=== PATIENT | female | born 1940 | race Caucasian/White ===

== ENCOUNTER 2017-08-14 14:59 | Emergency (ER) | payer MEDICARE ==
[~2017-08-14] VITALS: Ht 170.2 cm; Wt 72.6 kg
[~2017-08-14 14:59] MED LIST: ALBU90OI61 INH; ASPI81EC PO; ATEN25 PO; CALCAVITDA PO; CARI350 PO; CITA20 PO; CONEST.625 PO; CYAN1000 PO; DEXILANT PO; DILT60ER PO; DULO60 PO; FURO20 PO; HYDACE5 PO; IBUP800 PO; LANS30EC PO; LISHYD2012 PO; LISI5 PO; LORA.5 PO; LOVA40 PO; OMEG1CAP30 PO; OMEGA 3 PO; PARO20 PO; PREG50 PO; PREG75 PO; PRIM50 PO; RXHYDACE PO; TOCO400 PO; TRAM50 PO; [UNRECOGNIZED DRUG - OTHER] PO
[2017-08-14] MEDS ORDERED: GABA100 PO (16:46)
[2017-08-14] MEDS ORDERED: LISI20 PO (16:47)
[2017-08-14] MEDS ORDERED: MELO7.5 PO (16:48)
[2017-08-14] MEDS ORDERED: FURO20 PO (16:48)
[2017-08-14] MEDS ORDERED: POTA10T PO (16:48)
[2017-08-14] MEDS ORDERED: Carbidopa-Levo1 EAC1 PO (16:49)
[2017-08-14] MEDS ORDERED: Carbidopa-Levo1 EAC4 PO (16:50)
[2017-08-14] MEDS ORDERED: HYDR1TAB94 PO (17:56)
== END 2017-08-14 18:20 | disposition home or self-care (01) ==
LOC: ER 14:59
DX: T85.09XA Other mechanical complication of ventricular intracranial (communicating) shunt, initial encounter (principal); R51 Headache; Z79.899 Other long term (current) drug therapy; Z79.891 Long term (current) use of opiate analgesic
CPT/HCPCS: 36415; 70450; 75809; 96374; 96375; 99284; J1170; J2405

== ENCOUNTER 2017-10-02 06:30 | Emergency (ER) | payer MEDICARE ==
[~2017-10-02] VITALS: Ht 170.2 cm; Wt 71.2 kg
[~2017-10-02 06:30] MED LIST changes: +Carbidopa-Levo1 EAC1 PO; +Carbidopa-Levo1 EAC4; +GABA300 PO; +HYDR1TAB94 PO; +LISI20 PO; +MELO7.5 PO; +POTA10T PO
== END 2017-10-02 08:06 | disposition home or self-care (01) ==
LOC: ER 06:30
DX: S00.03XA Contusion of scalp, initial encounter (principal); S50.01XA Contusion of right elbow, initial encounter; S90.31XA Contusion of right foot, initial encounter; S70.01XA Contusion of right hip, initial encounter; I10 Essential (primary) hypertension; E78.00 Pure hypercholesterolemia, unspecified; F32.9 Major depressive disorder, single episode, unspecified; E11.9 Type 2 diabetes mellitus without complications; I25.2 Old myocardial infarction; Z86.73 Personal history of transient ischemic attack (TIA), and cerebral infarction without residual deficits; Z88.5 Allergy status to narcotic agent; Z88.8 Allergy status to other drugs, medicaments and biological substances; Z79.899 Other long term (current) drug therapy; W18.09XA Striking against other object with subsequent fall, initial encounter
CPT/HCPCS: 70450; 73502; 73630; 99284

== ENCOUNTER 2017-10-03 21:19 | Inpatient (IN) | payer MEDICARE ==
[~2017-10-03] VITALS: Ht 170.2 cm; Wt 71.7 kg
[~2017-10-03 21:19] MED LIST changes: -Carbidopa-Levo1 EAC4; +Carbidopa-Levo1 EAC4 PO; +GABA100 PO; -GABA300 PO
[2017-10-03 23:07] LABS: BASOPHILS ABSOLUTE AUTO 0.03 K/mm3 (0.00-0.23); BASOPHILS PERCENT AUTO 0 % (0-2); EOSINOPHILS PERCENT AUTO 0 % (0-6); Hematocrit 36.9 % (33.0-51.0); Hemoglobin 12.2 g/dL (11.5-16.0); IMMATURE GRAN ABSOLUTE AUTO 0.07 K/mm3 (0.00-0.10); IMMATURE GRAN PERCENT AUTO 1 % (0-1); LYMPHOCYTES ABSOLUTE AUTO 1.16 K/mm3 (0.84-5.20); LYMPHOCYTES PERCENT AUTO 9 % (21-46); MONOCYTES ABSOLUTE AUTO 1.17 K/mm3 (0.16-1.47); MONOCYTES PERCENT AUTO 9 % (4-13); Mean Corpuscular HGB 28.2 pg (26.0-34.0); Mean Corpuscular HGB Conc 33.1 g/dL (31.5-36.5); Mean Corpuscular Volume 85 fL (80-100); NEUTROPHILS PERCENT AUTO 81 % (41-73); Platelet Count 153 K/mm3 (150-400); RDW Coefficient Variation 13.1 % (11.7-14.2); RDW Standard Deviation 40.4 fL (35.1-46.3); Red Blood Cell Count 4.33 M/mm3 (3.80-5.20); White Blood Cell Count 12.73 K/mm3 (4.00-11.30)
[2017-10-03 23:22] LABS: Alanine Aminotransfer (ALT/SGP 11 U/L (12-78); Albumin, Blood 3.1 g/dL (3.4-5.0); Albumin/Globulin Ratio 0.7 (0.8-1.8); Alk Phos 82 U/L (50-136); Anion Gap 8 mmol/L (6-16); Aspartate Aminotrans (AST/SGOT 35 U/L (12-37); Bilirubin, Total 0.7 mg/dL (0.1-1.0); Blood Urea Nitrogen 19 mg/dL (8-24); CO2, Blood 25 mmol/L (21-32); Calcium, Blood 8.9 mg/dL (8.5-10.1); Chloride, Blood 100 mmol/L (98-108); Globulin, Blood 4.2 g/dL (2.2-4.0); Glomerular Filtration Rate >60 (60-); Glucose, Blood 95 mg/dL (70-99); Potassium, Blood 3.6 mmol/L (3.5-5.5); Sodium, Blood 133 mmol/L (136-145); Total Protein, Blood 7.3 g/dL (6.4-8.2)
[2017-10-03 23:47] LABS: Source, Urine Catheter
[2017-10-03 23:53] LABS: Bilirubin, Urine Neg (Neg); Blood, Urine 4+ (Neg); Glucose Qualitative, Urine Neg (Neg); Ketones, Urine 3+ (Neg); Leukocyte Esterase, Urine 3+ (Neg); Nitrite, Urine Pos (Neg); Protein, Urine 3+ (Neg); Urobilinogen, Urine NORM (Normal)
[2017-10-04 00:02] LABS: Appearance, Urine Hazy (Clear); Color, Urine Yellow (P-Yellow)
[2017-10-04 00:06] LABS: Bacteria Many /hpf; Red Blood Cells, Urine 0-2 /hpf (0-2); Squamous Epithelial Cells Few /hpf (Few); White Blood Cells, Urine TNTC /hpf (0-5)
[2017-10-04 05:17] LABS: BASOPHILS ABSOLUTE AUTO 0.04 K/mm3 (0.00-0.23); BASOPHILS PERCENT AUTO 0 % (0-2); EOSINOPHILS ABSOLUTE AUTO 0.02 K/mm3 (0.00-0.68); EOSINOPHILS PERCENT AUTO 0 % (0-6); Hematocrit 37.6 % (33.0-51.0); Hemoglobin 12.5 g/dL (11.5-16.0); IMMATURE GRAN ABSOLUTE AUTO 0.06 K/mm3 (0.00-0.10); IMMATURE GRAN PERCENT AUTO 1 % (0-1); LYMPHOCYTES PERCENT AUTO 12 % (21-46); MONOCYTES ABSOLUTE AUTO 1.08 K/mm3 (0.16-1.47); MONOCYTES PERCENT AUTO 9 % (4-13); Mean Corpuscular HGB 28.2 pg (26.0-34.0); Mean Corpuscular HGB Conc 33.2 g/dL (31.5-36.5); Mean Corpuscular Volume 85 fL (80-100); Mean Platelet Volume 11.1 fL (9.1-12.4); NEUTROPHILS ABSOLUTE AUTO 9.64 K/mm3 (1.96-9.15); NEUTROPHILS PERCENT AUTO 78 % (41-73); Platelet Count 147 K/mm3 (150-400); RDW Coefficient Variation 13.1 % (11.7-14.2); RDW Standard Deviation 40.7 fL (35.1-46.3); Red Blood Cell Count 4.43 M/mm3 (3.80-5.20); White Blood Cell Count 12.34 K/mm3 (4.00-11.30)
[2017-10-04 05:41] LABS: Anion Gap 9 mmol/L (6-16); Blood Urea Nitrogen 20 mg/dL (8-24); Bun/Creatinine Ratio 22.2 (12.0-20.0); CO2, Blood 23 mmol/L (21-32); Calcium, Blood 8.8 mg/dL (8.5-10.1); Chloride, Blood 102 mmol/L (98-108); Glomerular Filtration Rate >60 (60-); Glucose, Blood 90 mg/dL (70-99); Potassium, Blood 3.8 mmol/L (3.5-5.5); Sodium, Blood 134 mmol/L (136-145)
[2017-10-05 05:12] LABS: BASOPHILS ABSOLUTE AUTO 0.03 K/mm3 (0.00-0.23); BASOPHILS PERCENT AUTO 0 % (0-2); EOSINOPHILS ABSOLUTE AUTO 0.03 K/mm3 (0.00-0.68); EOSINOPHILS PERCENT AUTO 0 % (0-6); Hematocrit 36.1 % (33.0-51.0); Hemoglobin 11.9 g/dL (11.5-16.0); IMMATURE GRAN ABSOLUTE AUTO 0.08 K/mm3 (0.00-0.10); IMMATURE GRAN PERCENT AUTO 1 % (0-1); LYMPHOCYTES ABSOLUTE AUTO 1.36 K/mm3 (0.84-5.20); LYMPHOCYTES PERCENT AUTO 11 % (21-46); MONOCYTES ABSOLUTE AUTO 0.92 K/mm3 (0.16-1.47); MONOCYTES PERCENT AUTO 7 % (4-13); Mean Corpuscular HGB 28.1 pg (26.0-34.0); Mean Corpuscular Volume 85 fL (80-100); Mean Platelet Volume 11.3 fL (9.1-12.4); NEUTROPHILS ABSOLUTE AUTO 10.44 K/mm3 (1.96-9.15); NEUTROPHILS PERCENT AUTO 81 % (41-73); Platelet Count 160 K/mm3 (150-400); RDW Coefficient Variation 13.2 % (11.7-14.2); RDW Standard Deviation 41.1 fL (35.1-46.3); Red Blood Cell Count 4.23 M/mm3 (3.80-5.20); White Blood Cell Count 12.86 K/mm3 (4.00-11.30)
[2017-10-05 05:43] LABS: Anion Gap 8 mmol/L (6-16); Blood Urea Nitrogen 17 mg/dL (8-24); CO2, Blood 24 mmol/L (21-32); Calcium, Blood 8.6 mg/dL (8.5-10.1); Chloride, Blood 100 mmol/L (98-108); Creatinine, Blood 0.81 mg/dL (0.40-1.00); Glomerular Filtration Rate >60 (60-); Glucose, Blood 98 mg/dL (70-99); Potassium, Blood 3.6 mmol/L (3.5-5.5); Sodium, Blood 132 mmol/L (136-145)
[2017-10-06 04:46] LABS: BASOPHILS ABSOLUTE AUTO 0.03 K/mm3 (0.00-0.23); BASOPHILS PERCENT AUTO 0 % (0-2); EOSINOPHILS ABSOLUTE AUTO 0.09 K/mm3 (0.00-0.68); EOSINOPHILS PERCENT AUTO 1 % (0-6); Hematocrit 37.2 % (33.0-51.0); Hemoglobin 12.2 g/dL (11.5-16.0); IMMATURE GRAN ABSOLUTE AUTO 0.04 K/mm3 (0.00-0.10); IMMATURE GRAN PERCENT AUTO 0 % (0-1); LYMPHOCYTES ABSOLUTE AUTO 0.98 K/mm3 (0.84-5.20); LYMPHOCYTES PERCENT AUTO 11 % (21-46); MONOCYTES ABSOLUTE AUTO 0.84 K/mm3 (0.16-1.47); MONOCYTES PERCENT AUTO 9 % (4-13); Mean Corpuscular HGB 27.6 pg (26.0-34.0); Mean Corpuscular HGB Conc 32.8 g/dL (31.5-36.5); Mean Corpuscular Volume 84 fL (80-100); Mean Platelet Volume 10.5 fL (9.1-12.4); NEUTROPHILS PERCENT AUTO 79 % (41-73); Platelet Count 173 K/mm3 (150-400); RDW Coefficient Variation 12.9 % (11.7-14.2); RDW Standard Deviation 39.8 fL (35.1-46.3); Red Blood Cell Count 4.42 M/mm3 (3.80-5.20); White Blood Cell Count 9.28 K/mm3 (4.00-11.30)
[2017-10-06 05:04] LABS: Anion Gap 7 mmol/L (6-16); Blood Urea Nitrogen 14 mg/dL (8-24); Bun/Creatinine Ratio 19.3 (12.0-20.0); CO2, Blood 27 mmol/L (21-32); Calcium, Blood 8.9 mg/dL (8.5-10.1); Chloride, Blood 98 mmol/L (98-108); Creatinine, Blood 0.73 mg/dL (0.40-1.00); Glomerular Filtration Rate >60 (60-); Glucose, Blood 98 mg/dL (70-99); Potassium, Blood 3.9 mmol/L (3.5-5.5); Sodium, Blood 132 mmol/L (136-145)
[2017-10-07] MEDS ORDERED: ACETAMINOPHEN500 MG PO (15:35)
[2017-10-07] MEDS ORDERED: DOCU100 PO (15:36)
[2017-10-07] MEDS ORDERED: ALUM-MAG HYDRO360 ML PO (15:36)
[2017-10-07] MEDS ORDERED: HYDR10 PO (15:37)
[2017-10-07] MEDS ORDERED: ONDA4ODT SL (15:40)
[2017-10-07] MEDS ORDERED: LEVO750 PO (15:40)
[2017-10-07] MEDS ORDERED: Miralax17 GM PO (15:41)
== END 2017-10-07 18:14 | disposition home or self-care (01) | DRG 689 ==
LOC: ER 21:19 → MEDS 21:20
PROVIDERS: Emergency Medicine; Family Medicine; Internal Medicine
DX: N39.0 Urinary tract infection, site not specified (principal); G93.41 Metabolic encephalopathy; G91.2 (Idiopathic) normal pressure hydrocephalus; I10 Essential (primary) hypertension; G20 Parkinson's disease; B96.20 Unspecified Escherichia coli [E. coli] as the cause of diseases classified elsewhere; I25.2 Old myocardial infarction; M79.7 Fibromyalgia; F32.9 Major depressive disorder, single episode, unspecified; K59.00 Constipation, unspecified; R10.9 Unspecified abdominal pain
CPT/HCPCS: 36415; 74018; 76700; 80048; 80053; 81001; 83036; 83605; 85025; 87077; 87086; 87186; 87493; 96374; 97162; 97166; 97530; 97535; 99285; G8978; G8979; G8987; G8988; J0360; J0696; J1650; J1956; J2405; J3010; J3480; P9612

== ENCOUNTER 2017-12-05 17:28 | Emergency (ER) | payer MEDICARE ==
[~2017-12-05] VITALS: Ht 170.2 cm; Wt 68.0 kg
[~2017-12-05 17:28] MED LIST changes: +ACETAMINOPHEN500 MG PO; +ALUM-MAG HYDRO360 ML PO; +DOCU100 PO; +HYDR10 PO; +LEVO750 PO; +Miralax17 GM PO; +ONDA4ODT SL
== END 2017-12-05 20:20 | disposition left against medical advice (07) ==
LOC: ER 17:28
DX: Z53.21 Procedure and treatment not carried out due to patient leaving prior to being seen by health care provider (principal); N39.0 Urinary tract infection, site not specified
CPT/HCPCS: 99281

== ENCOUNTER → 2018-02-05 | Outpatient (CLI) | payer MEDICARE | END | disposition home or self-care (01) | LOC: LAB EV 15:30 → LAB SHORT 15:30 | DX: R30.0 Dysuria (principal) | CPT/HCPCS: 87077; 87086; 87186 ==

== ENCOUNTER → 2018-02-21 | Outpatient (CLI) | payer MEDICARE | END | disposition home or self-care (01) | LOC: LAB SHORT 17:08 → LAB EV 17:08 | DX: R30.0 Dysuria (principal) | CPT/HCPCS: 87077; 87086; 87186 ==

== ENCOUNTER → 2018-06-06 | Outpatient (CLI) | payer MEDICARE ==
[~2018-06-06] MED LIST changes: +AMLO5 PO; +CEFD300 PO; +METCAR500 PO; +MIRALAX17 GM PO; +Norco 5-325 Ta1 EACH PO; +Omeprazole20 M1 PO; +Robaxin500 MG PO; +Tizanidine HCl2 MG PO; +Tylenol325 MG PO
== END | disposition home or self-care (01) ==
LOC: LAB SHORT 16:14 → LAB EV 16:14
DX: N39.0 Urinary tract infection, site not specified (principal)
CPT/HCPCS: 87086

== ENCOUNTER 2018-07-02 13:41 | Inpatient (IN) | payer MEDICARE ==
[~2018-07-02] VITALS: Ht 167.6 cm; Wt 63.5 kg
[~2018-07-02 13:41] MED LIST changes: -AMLO5 PO; -CEFD300 PO; -METCAR500 PO; -MIRALAX17 GM PO; -Norco 5-325 Ta1 EACH PO; -Omeprazole20 M1 PO; -Robaxin500 MG PO; -Tizanidine HCl2 MG PO; -Tylenol325 MG PO
[2018-07-02 14:12] LABS: BASOPHILS ABSOLUTE AUTO 0.06 K/mm3 (0.00-0.23); BASOPHILS PERCENT AUTO 1 % (0-2); EOSINOPHILS PERCENT AUTO 3 % (0-6); Hematocrit 42.4 % (33.0-51.0); Hemoglobin 13.7 g/dL (11.5-16.0); IMMATURE GRAN ABSOLUTE AUTO 0.03 K/mm3 (0.00-0.10); IMMATURE GRAN PERCENT AUTO 0 % (0-1); LYMPHOCYTES ABSOLUTE AUTO 1.33 K/mm3 (0.84-5.20); LYMPHOCYTES PERCENT AUTO 14 % (21-46); MONOCYTES ABSOLUTE AUTO 0.55 K/mm3 (0.16-1.47); MONOCYTES PERCENT AUTO 6 % (4-13); Mean Corpuscular HGB 29.2 pg (26.0-34.0); Mean Corpuscular HGB Conc 32.3 g/dL (31.5-36.5); Mean Corpuscular Volume 90 fL (80-100); Mean Platelet Volume 11.1 fL (9.1-12.4); NEUTROPHILS ABSOLUTE AUTO 7.46 K/mm3 (1.96-9.15); NEUTROPHILS PERCENT AUTO 77 % (41-73); Platelet Count 209 K/mm3 (150-400); RDW Standard Deviation 42.3 fL (35.1-46.3); Red Blood Cell Count 4.69 M/mm3 (3.80-5.20); White Blood Cell Count 9.73 K/mm3 (4.00-11.30)
[2018-07-02 14:33] LABS: Albumin, Blood 3.6 g/dL (3.4-5.0); Albumin/Globulin Ratio 0.9 (0.8-1.8); Bilirubin, Total 0.5 mg/dL (0.1-1.0); Bun/Creatinine Ratio 20.2 (12.0-20.0); Calcium, Blood 8.8 mg/dL (8.5-10.1); Creatinine, Blood 1.14 mg/dL (0.40-1.00); Globulin, Blood 3.8 g/dL (2.2-4.0); Potassium, Blood 3.7 mmol/L (3.5-5.5); Total Protein, Blood 7.4 g/dL (6.4-8.2)
[2018-07-02 14:43] LABS: Source, Urine Clean Catch
[2018-07-02 14:47] LABS: Bilirubin, Urine Neg (Neg); Blood, Urine 2+ (Neg); Glucose Qualitative, Urine Neg (Neg); Ketones, Urine 1+ (Neg); Leukocyte Esterase, Urine 3+ (Neg); Nitrite, Urine Pos (Neg); Protein, Urine 3+ (Neg); Specific Gravity, Urine 1.025 (1.003-1.022); Urobilinogen, Urine NORM (Normal)
[2018-07-02 15:00] LABS: Appearance, Urine Cloudy (Clear); Color, Urine Yellow (P-Yellow)
[2018-07-02 15:01] LABS: White Blood Cells, Urine TNTC /hpf (0-5)
[2018-07-02 15:02] LABS: Bacteria Many /hpf; Red Blood Cells, Urine 0-2 /hpf (0-2); Squamous Epithelial Cells Not Seen /hpf (Few)
[2018-07-02 15:21] LABS: Influenza A Negative (NEGATIVE); Influenza B Negative (NEGATIVE)
--- NOTE | 2018-07-03 04:40 | NUR ---
SHIFT SUMMARY PT HAS SLEPT SINCE ARRIVING TO FLOOR. PT HAS HAD NO ACUTE ISSUES. PT IS CURRENTLY SLEEPING AND BREATHING EASY. CALL LIGHT IN REACH.
[2018-07-03 06:06] LABS: BASOPHILS ABSOLUTE AUTO 0.06 K/mm3 (0.00-0.23); BASOPHILS PERCENT AUTO 1 % (0-2); EOSINOPHILS PERCENT AUTO 6 % (0-6); Hematocrit 38.3 % (33.0-51.0); Hemoglobin 12.1 g/dL (11.5-16.0); IMMATURE GRAN ABSOLUTE AUTO 0.02 K/mm3 (0.00-0.10); IMMATURE GRAN PERCENT AUTO 0 % (0-1); LYMPHOCYTES ABSOLUTE AUTO 2.23 K/mm3 (0.84-5.20); LYMPHOCYTES PERCENT AUTO 34 % (21-46); MONOCYTES ABSOLUTE AUTO 0.55 K/mm3 (0.16-1.47); MONOCYTES PERCENT AUTO 8 % (4-13); Mean Corpuscular HGB 28.8 pg (26.0-34.0); Mean Corpuscular HGB Conc 31.6 g/dL (31.5-36.5); Mean Corpuscular Volume 91 fL (80-100); Mean Platelet Volume 11.3 fL (9.1-12.4); NEUTROPHILS ABSOLUTE AUTO 3.39 K/mm3 (1.96-9.15); NEUTROPHILS PERCENT AUTO 51 % (41-73); Platelet Count 174 K/mm3 (150-400); RDW Coefficient Variation 13.1 % (11.7-14.2); RDW Standard Deviation 43.1 fL (35.1-46.3); White Blood Cell Count 6.65 K/mm3 (4.00-11.30)
[2018-07-03 06:31] LABS: Anion Gap 8 mmol/L (6-16); Blood Urea Nitrogen 21 mg/dL (8-24); Bun/Creatinine Ratio 22.9 (12.0-20.0); CO2, Blood 26 mmol/L (21-32); Calcium, Blood 8.3 mg/dL (8.5-10.1); Chloride, Blood 110 mmol/L (98-108); Creatinine, Blood 0.92 mg/dL (0.40-1.00); Glomerular Filtration Rate >60 (60-); Glucose, Blood 84 mg/dL (70-99); Potassium, Blood 3.7 mmol/L (3.5-5.5); Sodium, Blood 144 mmol/L (136-145)
--- NOTE | 2018-07-03 18:57 | NUR ---
PATIENTS GOAL FOR THE DAY WAS TO , WITH THE AIDE OF A WALKER, MAKE IT TO THE RESTROOM WHICH SHE HAS DONE TODAY. DUE TO HER PARKINSON'S SHE IS SLOW BUT STEADY. SHE IS ALERT AND ORIENTED AND COOPERATIVE WITH ALL CARES. SHE HAS HAD NO COMPLAINTS THIS SHIFT AND HAS SHOWN MORE MOVEMENT AND ENERGY THE DAY GOES ON THOUGH STILL BELOW BASELINE.
--- NOTE | 2018-07-04 04:01 | NUR ---
COSMETICIAN CALLED STATED HAD PERIOD OF A-FLUTTER THAT LASTED 25 SECS. COPY OF EKG IS BEING SENT.
--- NOTE | 2018-07-04 04:50 | NUR ---
SHIFT SUMMARY PT HAS SLEPT THROUGHOUT THE SHIFT. PT HAD NO COMPLAINTS AND STATED SHE FEELS BETTER THIS EVENING. PT IS CURRENTLY SLEEPING IN NO DISTRESS. CALL LIGHT IN REACH.
[2018-07-04 05:12] LABS: BASOPHILS ABSOLUTE AUTO 0.04 K/mm3 (0.00-0.23); BASOPHILS PERCENT AUTO 1 % (0-2); EOSINOPHILS PERCENT AUTO 7 % (0-6); Hematocrit 37.5 % (33.0-51.0); Hemoglobin 11.9 g/dL (11.5-16.0); IMMATURE GRAN ABSOLUTE AUTO 0.02 K/mm3 (0.00-0.10); IMMATURE GRAN PERCENT AUTO 0 % (0-1); LYMPHOCYTES ABSOLUTE AUTO 1.83 K/mm3 (0.84-5.20); LYMPHOCYTES PERCENT AUTO 33 % (21-46); MONOCYTES ABSOLUTE AUTO 0.57 K/mm3 (0.16-1.47); MONOCYTES PERCENT AUTO 10 % (4-13); Mean Corpuscular HGB 28.8 pg (26.0-34.0); Mean Corpuscular HGB Conc 31.7 g/dL (31.5-36.5); Mean Corpuscular Volume 91 fL (80-100); Mean Platelet Volume 11.4 fL (9.1-12.4); NEUTROPHILS ABSOLUTE AUTO 2.74 K/mm3 (1.96-9.15); NEUTROPHILS PERCENT AUTO 49 % (41-73); Platelet Count 169 K/mm3 (150-400); RDW Coefficient Variation 12.9 % (11.7-14.2); RDW Standard Deviation 42.5 fL (35.1-46.3); Red Blood Cell Count 4.13 M/mm3 (3.80-5.20)
--- NOTE | 2018-07-04 18:52 | NUR ---
SUMMARY PT RESTING IN BED QUIETLY AFTER EATING DINNER UP IN THE CHAIR, PT HAS BEEN PLEASANT AND COOPERATIVE WITH CARE, USES HER CALL LIGHT APPROPRIATELY, PT HAS WORKED WITH PT/OT TODAY, VSS, NO ACUTE CHANGES, WILL CONT TO MONITOR
--- NOTE | 2018-07-05 07:35 | NUR ---
PT HAD GOOD NIGHT, SLEPT WELL. AMBULATED TO BATHROOM WITH STANDBY ASSIST SEVERAL TIMES THROUGH OUT THE SHIFT. DENIES PAIN, DISCOMFORT, OR FURTHER NEEDS AT THIS TIME. SAFETY MEASURES IN PLACE. HAND OFF GIVEN TO DAY SHIFT USING SBAR.
--- NOTE | 2018-07-05 18:43 | NUR ---
SHIFT SUMMARY OX3 PLEASANT. PARKINSON'S. SBA X1 TO BATHROOM. PULL UPS FOR OCCAISIONAL INCONTINENCE. C/O DYSURIA AND FREQUENCY -MEDS GIVEN. REPORTS "I LIVE WITH MY DAUGHTER BUT SHE HAS A LOT OF HEALTH PROBLEMS AND CAN'T TAKE CARE OF ME". [facility]ACEMENT [facility].
--- NOTE | 2018-07-06 04:51 | NUR ---
SHIFT SUMMARY NO CHANGES THIS SHIFT. PT HAS RESTED MOST OF THE NIGHT, SHE HAS DENIED PAIN OR NEEDS. SHE IS UP TO THE BATHROOM WITH 1 PA AND A FWW. VITALS HAVE REMAINED STABLE. ASSESSMENT UNCHANGED. PT A/OX4 PLESANT. WILL CONTINUE TO MONITOR AND REPORT TO ONCOMING RN.
--- NOTE | 2018-07-06 19:23 | NUR ---
SHIFT SUMMARY PATIENT A&O X4, 1PA TO THE BATHROOM. MEDICATED FOR CHRONIC BACK PAIN PER E AUG. DENIES ANY SOB, NAUSEA, OR HEADACHE. RESTED THROUGHOUT THE SHIFT. UP TO THE CHAIR FOR MEALS. BED IN LOWEST POSITION, CALL LIGHT WITHIN REACH. NO ACUTE CHANGES. RN WILL CONTINUE TO MONITOR.
--- NOTE | 2018-07-07 05:03 | NUR ---
SHIFT SUMMARY PT HAS RESTED MOST OF THE NIGHT. PT MEDICATED WITH SCHEDULED TYLENOL FOR HIP PAIN. SHE AMBULATES WELL WITH 1 PA TO THE BATHROOM. A/OX4, CALLS APPROPRIATLY. DENIES NEEDS FOR MOST OF THE NIGHT. ASSESSMENT UNCHANGED. WILL CONTINUE TO MONITOR AND REPORT TO ONCOMING RN.
--- NOTE | 2018-07-07 12:38 | NUR ---
PERMISSION FOR CARE PT GAVE THIS PAPER BALER PERMISSION TO GIVE CARE FOR 07/08/2018.
--- NOTE | 2018-07-07 19:16 | NUR ---
SHIFT SUMMARY PATIENT A&O X4, 1 PA TO BATHROOM. NO ACUTE CHANGES TODAY. MEDICATED PER E MAR X1 FOR CHRONIC BACK PAIN. UP IN THE CHAIR FOR MEALS. BED IN LOWEST POSITION, CALL LIGHT WITHIN REACH. NO ACUTE CHANGES.
--- NOTE | 2018-07-08 03:51 | NUR ---
SHIFT SUMMARY PT ADMITTED FOR PYLELONEPHRITIS. DNR. REGULAR DIET. LOVENOX FOR DVT PROPHYLAXIS. NO IV ACCESS ORDER. TAKES MEDICATIONS WHOLE WITH WATER. THE PT WAS BROUGHT TO THE ED DUE TO A SYNCOPAL EPISODE. THE PT APPARENTLY HAS HAD MULTIPLE FALLS LATELY WITH WORSENING PARKINSON SYMPTOMS. THE PTS DAUGHTER IS WORRIED ABOUT HEING ABLE TO CARE FOR HER MOTHER AT HOME. THE PT REPORTED DYSURIA AND FLANK PAIN WITH A HISTORY OF MULTIPLE UTIS. NORMAL PRESSURE HYDROCEPHELUS WITH A SHUNT. THE PT REPORTED NO FEELING LIKE RETURNING TO HER DAUGHTERS HOUSE IS NOT SAFE. THE PT REPORTED THAT HER DAUGHTER HAS CHRONIC MEDICAL ISSUES INCLUDING POORPY CONTROLLED DIABETES. THE PTS GRANDSON ALSO APPARENTLY LIVES IN THE HOME AND HAS MENTAL HEALTH ISSUES THAT ARE POORLY CONTROLLED. THE PT WOULD LIKE TO DISCHARGE TO AN ADULT FOSTER HOME OR ASSISTED LIVING FACILITY. SS IS WORKING WITH PT TO ASSIST WITH FINDING PLACEMENT. THE PT HAS APPEARED TO SLEEP COMFORTABLY MOST OF THE NIGHT WITH NO APPARENT SIGNS OF ACUTE DISTRESS. ABLE TO MAKE NEEDS KNOWN AND CALL LIGHT IN REACH.
[2018-07-08] MEDS ORDERED: Tylenol325 MG PO (14:34)
[2018-07-08] MEDS ORDERED: AMLO5 PO (14:35)
[2018-07-08] MEDS ORDERED: CEFD300 PO (14:37)
[2018-07-08] MEDS ORDERED: MIRALAX17 GM PO (14:38)
[2018-07-08] MEDS ORDERED: LOVA40 PO (14:39)
--- NOTE | 2018-07-08 18:18 | NUR ---
PT DISCHARGED AT 1730 WITH [facility] TO TRANSPORT. ALL PAPERS REVIEWED AND HOME HEALTH HAS BEEN SET OF FOR PT TO HAVE AT HOME. ALL BELONGINGS SENT WITH PT. PT HAS BEEN A ONE PERSON ASSIST WITH WALKER AND COOPERATIVE OF ALL CARE. NO DISTRESS NOTED.
[2018-07-25] MEDS ORDERED: Robaxin500 MG PO (01:53)
[2018-07-25] MEDS ORDERED: Norco 5-325 Ta1 EACH PO (01:53)
[2018-07-25] MEDS ORDERED: METCAR500 PO (14:28)
[2018-07-25] MEDS ORDERED: Tizanidine HCl2 MG PO (14:30)
[2018-07-25] MEDS ORDERED: Omeprazole20 M1 PO (14:32)
[2018-07-25] MEDS ORDERED: MELO7.5 PO (14:32)
== END 2018-07-08 17:31 | disposition home health service (06) | DRG 690 ==
LOC: ER 13:41 → MEDS 17:48
PROVIDERS: Physician Assistant; ADMIT Student in an Organized Health Care Education/Training Program
DX: N39.0 Urinary tract infection, site not specified (principal); G91.9 Hydrocephalus, unspecified; B96.20 Unspecified Escherichia coli [E. coli] as the cause of diseases classified elsewhere; N12 Tubulo-interstitial nephritis, not specified as acute or chronic; E86.9 Volume depletion, unspecified; G20 Parkinson's disease; G31.84 Mild cognitive impairment of uncertain or unknown etiology; R62.7 Adult failure to thrive; N18.3 Chronic kidney disease, stage 3 (moderate); I12.9 Hypertensive chronic kidney disease with stage 1 through stage 4 chronic kidney disease, or unspecified chronic kidney disease; E11.22 Type 2 diabetes mellitus with diabetic chronic kidney disease; E78.5 Hyperlipidemia, unspecified; Z66 Do not resuscitate; I25.10 Atherosclerotic heart disease of native coronary artery without angina pectoris; Z86.73 Personal history of transient ischemic attack (TIA), and cerebral infarction without residual deficits; Z91.81 History of falling; Z88.5 Allergy status to narcotic agent; Z79.899 Other long term (current) drug therapy; I25.2 Old myocardial infarction
CPT/HCPCS: 36415; 80048; 80053; 81001; 85025; 87077; 87086; 87186; 87804; 93005; 93010; 96361; 96365; 96375; 97110; 97116; 97162; 97165; 97530; 97535; 99285-25; J0696; J1650; J2550; J7030; J7120; P9612

== ENCOUNTER 2018-10-22 10:47 | Observation (INO) | payer MEDICARE ==
[~2018-10-22] VITALS: Ht 162.6 cm; Wt 71.6 kg
[~2018-10-22 10:47] MED LIST changes: +AMLO5 PO; +ATOR40TA PO; +CEFD300 PO; +ENSURE HIGH PR237 ML PO; -GABA100 PO; +GABA300 PO; -LISI20 PO; +METCAR500 PO; +MIRALAX17 GM PO; +NITR.4SL SL; +Norco 5-325 Ta1 EACH PO; +Omeprazole20 M1 PO; +Prinivil10 MG PO; +Robaxin500 MG PO; +Tizanidine HCl2 MG PO; +Tylenol325 MG PO
[2018-10-22 12:43] LABS: Alanine Aminotransfer (ALT/SGP 39 U/L (12-78); Albumin, Blood 3.7 g/dL (3.4-5.0); Albumin/Globulin Ratio 0.9 (0.8-1.8); Alk Phos 93 U/L (50-136); Anion Gap 10 mmol/L (6-16); Aspartate Aminotrans (AST/SGOT 97 U/L (12-37); Bilirubin, Total 0.7 mg/dL (0.1-1.0); Blood Urea Nitrogen 29 mg/dL (8-24); Bun/Creatinine Ratio 33.9 (12.0-20.0); CO2, Blood 24 mmol/L (21-32); Calcium, Blood 9.1 mg/dL (8.5-10.1); Chloride, Blood 107 mmol/L (98-108); Creatinine, Blood 0.86 mg/dL (0.40-1.00); Globulin, Blood 4.1 g/dL (2.2-4.0); Glomerular Filtration Rate >60 (60-); Glucose, Blood 101 mg/dL (70-99); Potassium, Blood 3.7 mmol/L (3.5-5.5); Sodium, Blood 141 mmol/L (136-145); Total Protein, Blood 7.8 g/dL (6.4-8.2)
[2018-10-22 12:53] LABS: BASOPHILS ABSOLUTE AUTO 0.06 K/mm3 (0.00-0.23); BASOPHILS PERCENT AUTO 0 % (0-2); EOSINOPHILS ABSOLUTE AUTO 0.06 K/mm3 (0.00-0.68); EOSINOPHILS PERCENT AUTO 0 % (0-6); Hematocrit 39.2 % (33.0-51.0); Hemoglobin 12.7 g/dL (11.5-16.0); IMMATURE GRAN ABSOLUTE AUTO 0.07 K/mm3 (0.00-0.10); IMMATURE GRAN PERCENT AUTO 1 % (0-1); LYMPHOCYTES ABSOLUTE AUTO 1.74 K/mm3 (0.84-5.20); LYMPHOCYTES PERCENT AUTO 12 % (21-46); MONOCYTES ABSOLUTE AUTO 0.87 K/mm3 (0.16-1.47); MONOCYTES PERCENT AUTO 6 % (4-13); Mean Corpuscular HGB Conc 32.4 g/dL (31.5-36.5); Mean Corpuscular Volume 86 fL (80-100); Mean Platelet Volume 11.4 fL (9.1-12.4); NEUTROPHILS ABSOLUTE AUTO 11.95 K/mm3 (1.96-9.15); NEUTROPHILS PERCENT AUTO 81 % (41-73); Platelet Count 216 K/mm3 (150-400); RDW Coefficient Variation 13.7 % (11.7-14.2); RDW Standard Deviation 42.9 fL (35.1-46.3); Red Blood Cell Count 4.54 M/mm3 (3.80-5.20); White Blood Cell Count 14.75 K/mm3 (4.00-11.30)
[2018-10-22 13:08] LABS: Source, Urine Voided
[2018-10-22 13:28] LABS: Bilirubin, Urine Neg (Neg); Blood, Urine 4+ (Neg); Glucose Qualitative, Urine Neg (Neg); Ketones, Urine 2+ (Neg); Leukocyte Esterase, Urine 1+ (Neg); Nitrite, Urine Neg (Neg); Protein, Urine 3+ (Neg); Specific Gravity, Urine 1.025 (1.003-1.022); Urobilinogen, Urine NORM (Normal)
[2018-10-22 14:13] LABS: Appearance, Urine Hazy (Clear); Color, Urine Yellow (P-Yellow)
[2018-10-22 14:15] LABS: Amorphous Light (0-Heavy); Bacteria Few /hpf; Hyaline Casts 0-2 /lpf (0-2); Red Blood Cells, Urine 0-2 /hpf (0-2); Squamous Epithelial Cells Few /hpf (Few)
--- NOTE | 2018-10-22 20:30 | NUR ---
transfer report from IMPROVEMENT LEADNATE Casiano on PT being admitted with altered mental status UTI, Parkinsons, falls. She had head CT in ER due to hx of vent shunt which showed no acute changes, mild lt parietal scalp soft tissue swelling. Await admission for OBS status PT.
--- NOTE | 2018-10-23 03:31 | NUR ---
78 YEAR OLD fEMALE ADMITTED FROM HOME WITH SEVERAL FALLS AND UTI. sHE HAS VENT SHUNT PLACED AROUND 3 YEARS AGO. SHE FELL AND HIT HER HEAD AND HAS MILD LT PAREITAL SCALP TISSUE SWELLING. MEDICATED X 1 FOR MILD PAIN WITH HELPFUL EFFECT. ua c & S PENDING. PT HAS PARKINSONS AND DTR HAS IDDM AND HAVING DIFFICULTY CARING FOR PTS INCREASED CARE NEEDS. DTR NOT PRESENT CAME EMS. SW REFERRAL, PT OT EVAL RX. FALL PRECAUTIONS. INCONTINENT OF URINE REPORTED BOWEL INCONT IN ER. NO ATTEMPTS TO GET OUT OF BED UNASSISTED. COOPERATIVE WITH MEDS WHOLE. MADE DIET MECH SOFT WITH GROUND MEAT DUE TO BROKEN TOOTH AND PARTIAL LEFT AT HOME. ON TEL NSR
[2018-10-23 04:49] LABS: BASOPHILS ABSOLUTE AUTO 0.06 K/mm3 (0.00-0.23); BASOPHILS PERCENT AUTO 1 % (0-2); EOSINOPHILS ABSOLUTE AUTO 0.47 K/mm3 (0.00-0.68); EOSINOPHILS PERCENT AUTO 6 % (0-6); Hematocrit 34.9 % (33.0-51.0); Hemoglobin 11.1 g/dL (11.5-16.0); IMMATURE GRAN ABSOLUTE AUTO 0.03 K/mm3 (0.00-0.10); IMMATURE GRAN PERCENT AUTO 0 % (0-1); LYMPHOCYTES ABSOLUTE AUTO 2.47 K/mm3 (0.84-5.20); LYMPHOCYTES PERCENT AUTO 30 % (21-46); MONOCYTES ABSOLUTE AUTO 0.72 K/mm3 (0.16-1.47); MONOCYTES PERCENT AUTO 9 % (4-13); Mean Corpuscular HGB 27.4 pg (26.0-34.0); Mean Corpuscular HGB Conc 31.8 g/dL (31.5-36.5); Mean Corpuscular Volume 86 fL (80-100); NEUTROPHILS ABSOLUTE AUTO 4.61 K/mm3 (1.96-9.15); NEUTROPHILS PERCENT AUTO 55 % (41-73); Platelet Count 182 K/mm3 (150-400); RDW Coefficient Variation 13.9 % (11.7-14.2); RDW Standard Deviation 43.4 fL (35.1-46.3); Red Blood Cell Count 4.05 M/mm3 (3.80-5.20); White Blood Cell Count 8.36 K/mm3 (4.00-11.30)
[2018-10-23 05:06] LABS: Anion Gap 5 mmol/L (6-16); Blood Urea Nitrogen 27 mg/dL (8-24); Bun/Creatinine Ratio 29.3 (12.0-20.0); CO2, Blood 27 mmol/L (21-32); Calcium, Blood 8.7 mg/dL (8.5-10.1); Chloride, Blood 111 mmol/L (98-108); Creatinine, Blood 0.92 mg/dL (0.40-1.00); Glomerular Filtration Rate >60 (60-); Glucose, Blood 94 mg/dL (70-99); Potassium, Blood 3.3 mmol/L (3.5-5.5); Sodium, Blood 143 mmol/L (136-145)
--- NOTE | 2018-10-23 13:57 | NUR ---
Initial Visit: Palliative Care Consult for Advanced Care Planning. Pt is A&Ox4 and reports tolerable pain level of 5/10 in her hip, knee, and ankle. Pt states the pain is from her arthritis. Pt denies dyspnea and anxiety at this time. Engaged in theapeutic discussion regarding advanced care planning. Pt lives with her daughter Caitlyn who is Pt's primary caregiver. Caitlyn's adult son lives with them as well. Pt denies any judaism beliefs. Listened as Pt expresses concerns of daughter's ability to care for her. Pt tearful at times during visit. Pt reports Caitlyn has health issues of her own and has stresses related to careing for her adult son who has bipolar disorder. Pt reports Caitlyn at times struggles with her role as a caregiver and as a daughter. Pt reports Caitlyn sometimes has unrealistic expectations of Pt and does not consider her Parkinson's disease. Engaged in discussion regarding options for a higher level of care including adult foster homes and assisted living facilities. Pt reports interest in higher level of care. She states that she would like to go to an assisted living. She expresses concerns going to an adult foster home. Discussed POLST/AD with Pt and she reports having a completed POLST on the refrigerator at home. She states if her daughter comes to visit she will ask her to bring it. Pt still tearful at times and this RN did not access Pt's knowledge of disease process for Parkinson's Disease. Occupational Therapy arriving to room to work with Pt. Pt reports no other concerns at this time. Spoke with benny Adams regarding Pt's wishes for higher level of care. Angie reports that she will make a visit. Palliative Care will remain available
--- NOTE | 2018-10-23 18:40 | NUR ---
NO ACUTE CHANGES. PATIENT IS ABLE TO EXPRESS NEEDS. NO COMPLAINTS OF PAIN . WORKED WITH PT.
[2018-10-24 05:48] LABS: BASOPHILS ABSOLUTE AUTO 0.06 K/mm3 (0.00-0.23); BASOPHILS PERCENT AUTO 1 % (0-2); EOSINOPHILS ABSOLUTE AUTO 0.52 K/mm3 (0.00-0.68); EOSINOPHILS PERCENT AUTO 7 % (0-6); Hematocrit 34.8 % (33.0-51.0); Hemoglobin 11.1 g/dL (11.5-16.0); IMMATURE GRAN ABSOLUTE AUTO 0.02 K/mm3 (0.00-0.10); IMMATURE GRAN PERCENT AUTO 0 % (0-1); LYMPHOCYTES ABSOLUTE AUTO 1.91 K/mm3 (0.84-5.20); LYMPHOCYTES PERCENT AUTO 27 % (21-46); MONOCYTES ABSOLUTE AUTO 0.62 K/mm3 (0.16-1.47); MONOCYTES PERCENT AUTO 9 % (4-13); Mean Corpuscular HGB 28.4 pg (26.0-34.0); Mean Corpuscular HGB Conc 31.9 g/dL (31.5-36.5); Mean Platelet Volume 11.4 fL (9.1-12.4); NEUTROPHILS ABSOLUTE AUTO 3.85 K/mm3 (1.96-9.15); NEUTROPHILS PERCENT AUTO 55 % (41-73); Platelet Count 165 K/mm3 (150-400); RDW Standard Deviation 45.1 fL (35.1-46.3); Red Blood Cell Count 3.91 M/mm3 (3.80-5.20); White Blood Cell Count 6.98 K/mm3 (4.00-11.30)
[2018-10-24 05:51] LABS: Mean Corpuscular Volume 89 fL (80-100)
[2018-10-24 06:09] LABS: Magnesium, Blood 1.9 mg/dL (1.6-2.4)
[2018-10-24 06:10] LABS: Alanine Aminotransfer (ALT/SGP 11 U/L (12-78); Albumin, Blood 2.9 g/dL (3.4-5.0); Albumin/Globulin Ratio 0.8 (0.8-1.8); Alk Phos 65 U/L (50-136); Anion Gap 5 mmol/L (6-16); Aspartate Aminotrans (AST/SGOT 40 U/L (12-37); Bilirubin, Total 0.4 mg/dL (0.1-1.0); Blood Urea Nitrogen 25 mg/dL (8-24); Bun/Creatinine Ratio 33.2 (12.0-20.0); CO2, Blood 28 mmol/L (21-32); Calcium, Blood 8.4 mg/dL (8.5-10.1); Chloride, Blood 110 mmol/L (98-108); Creatinine, Blood 0.75 mg/dL (0.40-1.00); Globulin, Blood 3.5 g/dL (2.2-4.0); Glomerular Filtration Rate >60 (60-); Glucose, Blood 93 mg/dL (70-99); Phosphorus, Blood 3.4 mg/dL (2.5-4.9); Potassium, Blood 3.5 mmol/L (3.5-5.5); Sodium, Blood 143 mmol/L (136-145); Total Protein, Blood 6.4 g/dL (6.4-8.2)
--- NOTE | 2018-10-24 06:55 | NUR ---
PT CONTINUES TO NEED MAX ASSIST WITH ADLS. sHE HAS MILD GEN LT HIP ARTHRITIC PAIN. ROOM AIR. no acute complaints. no visits from Family this shift.
--- NOTE | 2018-10-24 18:13 | NUR ---
NO ACUTE CHANGES THIS SHIFT. SOCIAL SERIVES INVOLVED WITH PLACEMENT . PATIENT IS STILL UNSTEADY ON HER FEET AND IS A MAX ASSIST BUT WILLING TO GET UP WITH ASSISTANCE. PATIENT IS COOPERATIVE WITH CARES. SHE CALLS JEANNINE.
--- NOTE | 2018-10-25 04:39 | NUR ---
SHIFT SUMMARY PT PLEASANT AND COOPERATIVE. DIFFICULT ONE ASSIST TO BSC AND BACK TO BED. PT HAD DIFFICULT TIME MOVING EXTREMETIES. WHEN TRANSFERING BACK TO BED PT SAID, "UH OH, HERE I GO" AND THEN STIFFENED AND FELL BACKWARD, LUCKILY BED WAS RIGHT BESIDE HER AND SHE WAS ABLE TO FALL, ASSISTED, ONTO THE BED. LEFT ANKLE/FOOT SWOLLEN, ELEVATED ON PILLOW THIS EVENING. LIGHT TREMOR NOTED INTERMITTENTLY. BRUISING NOTED TO BILATERAL SHOULDERS. PT PAINFUL IN HIPS AND KNEES, TYLENOL REQUESTED AND GIVEN. PT CONTINENT/INCONTINENT. ATTENDS IN PLACE. VSS. NO ACUTE CHANGES OVERNIGHT.
[2018-10-25 05:48] LABS: BASOPHILS ABSOLUTE AUTO 0.08 K/mm3 (0.00-0.23); BASOPHILS PERCENT AUTO 1 % (0-2); EOSINOPHILS ABSOLUTE AUTO 0.48 K/mm3 (0.00-0.68); EOSINOPHILS PERCENT AUTO 7 % (0-6); Hematocrit 37.2 % (33.0-51.0); Hemoglobin 11.7 g/dL (11.5-16.0); IMMATURE GRAN ABSOLUTE AUTO 0.02 K/mm3 (0.00-0.10); IMMATURE GRAN PERCENT AUTO 0 % (0-1); LYMPHOCYTES ABSOLUTE AUTO 2.28 K/mm3 (0.84-5.20); LYMPHOCYTES PERCENT AUTO 34 % (21-46); MONOCYTES ABSOLUTE AUTO 0.57 K/mm3 (0.16-1.47); MONOCYTES PERCENT AUTO 9 % (4-13); Mean Corpuscular HGB 27.7 pg (26.0-34.0); Mean Corpuscular HGB Conc 31.5 g/dL (31.5-36.5); Mean Corpuscular Volume 88 fL (80-100); Mean Platelet Volume 11.4 fL (9.1-12.4); NEUTROPHILS PERCENT AUTO 48 % (41-73); Platelet Count 185 K/mm3 (150-400); RDW Coefficient Variation 13.7 % (11.7-14.2); RDW Standard Deviation 44.1 fL (35.1-46.3); Red Blood Cell Count 4.23 M/mm3 (3.80-5.20); White Blood Cell Count 6.63 K/mm3 (4.00-11.30)
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
--- NOTE | 2018-10-25 13:34 | NUR ---
Therapeutic Pt visit this afternoon. Pt reports her pain is managed and denies dyspnea at this time. Listened as Pt states [facility] She expresses mild frustation knowing this is a holiday weekend and nothing will happen until no sooner than Saturday. Pt states she does not care for the anticipation. Suggested watching a favorite television show to help pass the time. Pt states that she likes to watch the [employer] channels and [employer]. She states a lot times she falls a sleep to them. Listened as Pt reminisces about going camping on and how it would always rain. She states she would camp and fish at [facility]. Pt expresses appreciaion of visit and reports no concerns at this time. Palliative Care will remaine available.
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
--- NOTE | 2018-10-26 04:33 | NUR ---
SHIFT SUMMARY NO ACUTE CHANGES. PT REMAINED IN BED THIS SHIFT. INCONTINENT OF URINE. ATTENDS IN PLACE. PT TURNED AND CHANGED NEEDED. PT TURNS SELF IN BED OCCASSIONALLY. PT STIFF, WITH BASELINE MILD BUE TREMORS DUE TO PARKINSON'S. TYLENOL GIVEN FOR GENERALIZED BODY ACHES IN BACK, HIPS, AND KNEES. PT DENIED NEED FOR ANY STRONGER PAIN MEDICATION. PICTURES OF BRUISES ON BUE'S TAKEN AND PLACED IN CHART. PT RESTING IN BED AT THIS TIME. WILL CONTINUE TO MONITOR AND REPORT TO DAY RN.
[2018-10-26 04:54] LABS: BASOPHILS ABSOLUTE AUTO 0.08 K/mm3 (0.00-0.23); BASOPHILS PERCENT AUTO 1 % (0-2); EOSINOPHILS PERCENT AUTO 8 % (0-6); Hematocrit 37.5 % (33.0-51.0); Hemoglobin 11.9 g/dL (11.5-16.0); IMMATURE GRAN ABSOLUTE AUTO 0.03 K/mm3 (0.00-0.10); IMMATURE GRAN PERCENT AUTO 1 % (0-1); LYMPHOCYTES ABSOLUTE AUTO 2.33 K/mm3 (0.84-5.20); LYMPHOCYTES PERCENT AUTO 37 % (21-46); MONOCYTES ABSOLUTE AUTO 0.54 K/mm3 (0.16-1.47); MONOCYTES PERCENT AUTO 9 % (4-13); Mean Corpuscular HGB 27.9 pg (26.0-34.0); Mean Corpuscular HGB Conc 31.7 g/dL (31.5-36.5); Mean Corpuscular Volume 88 fL (80-100); Mean Platelet Volume 11.4 fL (9.1-12.4); NEUTROPHILS ABSOLUTE AUTO 2.76 K/mm3 (1.96-9.15); NEUTROPHILS PERCENT AUTO 44 % (41-73); Platelet Count 191 K/mm3 (150-400); RDW Coefficient Variation 13.9 % (11.7-14.2); RDW Standard Deviation 44.8 fL (35.1-46.3); Red Blood Cell Count 4.27 M/mm3 (3.80-5.20); White Blood Cell Count 6.24 K/mm3 (4.00-11.30)
[2018-10-26 05:13] LABS: Anion Gap 6 mmol/L (6-16); Blood Urea Nitrogen 25 mg/dL (8-24); Bun/Creatinine Ratio 30.3 (12.0-20.0); CO2, Blood 28 mmol/L (21-32); Calcium, Blood 8.9 mg/dL (8.5-10.1); Chloride, Blood 107 mmol/L (98-108); Creatinine, Blood 0.82 mg/dL (0.40-1.00); Glomerular Filtration Rate >60 (60-); Glucose, Blood 93 mg/dL (70-99); Potassium, Blood 3.9 mmol/L (3.5-5.5); Sodium, Blood 141 mmol/L (136-145)
--- NOTE | 2018-10-26 17:31 | NUR ---
SHIFT SUMMARY NO ACUTE CHANGES. PT WORKED WITH PATIENT TODAY. MEDICATED X 1 FOR PAIN. DENIES NAUSEA OR SHORTNESS OF BREATH. UP IN CHAIR FOR MEALS. APS TO MEET WITH PATIENT ON SATURDAY. CALL LIGHT IN REACH, WILL CONTINUE TO MONITOR.
--- NOTE | 2018-10-27 05:18 | NUR ---
SHIFT SUMMARY NO ACUTE CHANGES. PT REMAINED IN BED THROUGHOUT THE NIGHT. ALERT AND ORIENTED, DID NOT ATTEMPT TO GET OOB WITHOUT ASSISTANCE. PT COMPLAINED OF BURNING AND PAIN WITH VOIDING THIS EVENING. PT GETS CHRONIC UTI'S AT HOME AND REPORTS THAT SHE HAS A PRESCRIBED ANTIBIOTIC THAT SHE IS SUPPOSED TO TAKE AT HOME WHEN SHE FEELS SYMPTOMS COMING ON. SPOKE WITH COVERING HOSPITALIST CHRISTEN CLARKE WHO DID NOT FEEL IT WAS WARRANTED TO CHECK UA DUE TO IT BEING DONE ON 10/22/18. ACQUIRED UA AND SENT TO LAB TO HOLD IN CASE JAMES LAIRD WANTS TO HAVE URINE TESTED. PT INCONTINENT THROUGHOUT THE NIGHT, EXCEPT FOR SMALL AMOUNT FOR UA. PT CONTINUES TO BE STIFF AND HAVE BASELINE TREMORS IN BUE'S. VITAL SIGNS ARE STABLE. WILL CONTINUE TO MONITOR.
[2018-10-27 11:22] LABS: Source, Urine Clean Catch
[2018-10-27 11:37] LABS: Appearance, Urine Hazy (Clear); Bilirubin, Urine Neg (Neg); Blood, Urine 4+ (Neg); Color, Urine Yellow (P-Yellow); Glucose Qualitative, Urine Neg (Neg); Ketones, Urine 1+ (Neg); Leukocyte Esterase, Urine 3+ (Neg); Nitrite, Urine Neg (Neg); Protein, Urine 2+ (Neg); Urobilinogen, Urine NORM (Normal)
[2018-10-27 11:52] LABS: White Blood Cells, Urine TNTC /hpf (0-5)
[2018-10-27 11:56] LABS: Bacteria Many /hpf; Squamous Epithelial Cells Rare /hpf (Few)
--- NOTE | 2018-10-27 18:20 | NUR ---
ALERT, ORIENTED. UNLABORED RESPIRATIONS. OLD HEALING BRUISES SHLDRS. BUE TREMORS. HX PARKINSONS. URINE SENT AND LAB ORDERED. MEDICATED FOR CHRONIC PAIN WITH GOOD RESULTS. APS TO COME SATURDAY TO INTERVIEW PATIENT. LEFT ANKLE LOOKS MORE DEFORMED THAN SWOLLEN WITH PATIENT STATING "BEEN LIKE THAT FOR ABOUT ONE YEAR." ABLE TO MAKE NEEDS KNOWN. BED IN LOW POSITION. WCTM.
--- NOTE | 2018-10-28 04:40 | NUR ---
SHIFT SUMMARY THE PT ADMITTED FOR FREQUENT FALLS. LIMITED CODE-MEDICATIONS. MECHANICAL SOFT-GROUND DIET. SS FERERRAL. LOVENOX FOR DVT PROPHYLAXIS. 20G IV TO R FA. TAKES MEDICATIONS WHOLE WITH WATER. 1 PERSON ASSIST WITH TRANSFERS. POSSIBLE PLACEMENT ISSUE. SWELLING TO L ANKLE FOR THE PAST YEAR PER REPORT. PT NOTED TO HAVE UPPER EXTREMETEY TREMOR DUE TO PARKINSON. CHRONIC HIP PAIN. THE PT PRESENTED TO THE ED WITH POSSIBLE UTI, WHICH THE PT HAS A HISTORY OF AND AMS WITH FREQUENT FALLS AT HOME. THE PT NORMALLY LIVES WITH HER DAUGHTER WHO HAS EXPRESSED CONCEARN REGARDING ABILITY TO TAKE CARE OF THE PT. SS CONSULTED TO ENSURE THAT PT IS IN A SAFE ENCIRONMENT. THE PT IS MEDICALLY STABLE AND AWAITING PLACEMENT. APS HAS BEEN INVOLVED DUE TO BILATERAL BRUSISES TO BOTH ARMS THAT APPEAR TO BE INCONSISTENT WITH FALLS AND THE DAUGHTER REPORTED STATING THAT SHE GETS FRUSTRATED WITH THE PT. APS TO RE-VISIT TODAY PER REPORT. CASE MANAGMENT HAS BEEN UNABLE TO GET AHOLD OF PTS DAUGHTER. THE PT IS PLEASENT AND COOPERATIVE. HAS APPEARED TO SLEEP COMFORTABLY OFF AND ON. PT AWAKE AND WATCHING TV AT THIS TIME. NO APPARENT SIGNS OF ACUTE DISTRESS. BED ALARM FOR SAFETY. ABLE TO MAKE NEEDS KNOWN AND CALL LIGHT IN REACH.
--- NOTE | 2018-10-28 05:32 | NUR ---
10/28/18 0510 RECEIVED FROM ALU VIA BED. OREINTED TO ROOM AND CALL SYSTEM. BED ALARM ON. DENIES ANY PAIN JUST SLIGHTLY COLD. ROOM TEMP.INCREASED AND BLANKETS ON.
--- NOTE | 2018-10-28 06:03 | NUR ---
10/28/18 0600 PT CALLED FOR PAIN MED. C/O RT HIP PAIN. SEE MAR. PT ALSO REPOSITIONED BY TWO RN'S. WATCHING TV.
--- NOTE | 2018-10-28 18:26 | NUR ---
PHYSICAL THERAPY EVALUATED PT TODAY, SEE PT NOTE. APS WAS AT BEDSIDE TODAY, CARD LEFT IN CHART. PT C/O OF RT HIP PAIN THE AFTERNOON AND WAS MEDICATED WITH 50 MG PO ULTRAM. NO ACUTE CHANGES NOTED THIS SHIFT. WILL CONTINUE TO MONITOR AND REPORT TO ONCOMING RN
--- NOTE | 2018-10-29 07:18 | NUR ---
note 10/29/18 0600 Awakened for AM meds. C/O rt hip discomfort and was medicated. Repositioned in bed. Uneventful night.
--- NOTE | 2018-10-29 18:21 | NUR ---
SHIFT SUMMARY DC DIRECTOR OF PHYSICAL THERAPY IS WORKING ON PLACEMENT. PT IS VERY STIFF AND DIFFICULT TO MOVE WHEN UP. DIET WAS CHANGED TODAY. WILL CONTINUE TO MONITOR.
--- NOTE | 2018-10-30 03:44 | NUR ---
SHIFT SUMMARY: PT IS ALERT AND ORIENTED. PT IS CALM AND COOPERATIVE WITH CARE. PT CALLS APPROPRIATELY. PT IS A 2 PERSON ASSIST WITH FWW, NOT OUT OF BED OVERNIGHT. PT INCONTINENT, CHANGED AND CLEANED NEEDED. PT REPORTS BACK PAIN, GAVE PRN TYLENOL. PT DENIES NAUSEA, VOMITING, AND SOB. PT SLEPT MUCH OF THE NIGHT WHEN NOT DISTURBED. NO ACUTE CHANGES OR COMPLICATIONS. WILL REPORT TO DAY NURSE.
--- NOTE | 2018-10-30 17:51 | NUR ---
SUMMARY PT SITTING UP IN THE CHAIR AT THE BEDSIDE EATING HER DINNER, PT HAS GOTTEN UP TO THE CHAIR SEVERAL TIMES TODAY, PT MED PER EMAR FOR PAIN, PT WORKED WITH PT/OT TODAY, VSS, NO ACUTE CHANGES, WILL CONT TO MONITOR
--- NOTE | 2018-10-31 05:59 | NUR ---
SHIFT SUMMARY: PT ALERT AND COOPERATIVE. VS WNL T/O THE NIGHT. REPORTS PAIN HEADACHE WITH NECK PAIN. GAVE TYELNOL WHICH RESOLVED IT. STATES ITS LIKE TENSION. TREMORS NOTED IN HANDS FROM PARKINSONS, BUT ABLE TO CCO CUPS WTIH NO PROBLEMS, WREATH MACHINE TENDER ARE EQUAL BILATERALLY, DORSAL FLEXTION AND EXTENTION ALSO EQUAL, BUT STATES WEAK ON STANDING WITH UNSTEADINESS. ATTENDS CHANGED PRN REPORTS OCCATIONAL BURNING UPON URINATING. HX OF CHRONIC UTI'S NOTED. INSTRUCTED ON PREVENTION MEASURES TO CONSIDER. ENCOURAGE FLUID INTAKE WELL. NO SKIN BREAKDOWN WAS NOTED. SKIN PWD. PATIENT SLEPT WELL T/O THE NIGHT WHEN NOT DISTURBED. STATES SHE IS LOOKING INTO A [facility] FOR HER TO GO TO. NO OTHER CHANGES TO NOTE THIS SHIFT, WILL REPORT TO ONCSHMUEL SULLIVAN
--- NOTE | 2018-10-31 17:48 | NUR ---
SUMMARY PT SITTING UP IN THE RECLINER EATING HER DINNER, PT HAS WORKED WITH PT/OT TODAY, PT HAD A VISIT FROM ADULT FOSTER HOME PROVIDER [facility], A VISIT FROM HER AUTOMATION DRIVER DARCY, AND A VISIT FROM [facility], PT HAS BEEN USING HER CALL LIGHT APPROPRIATELY, VSS, NO ACUTE CHANGES, WILL CONT TO MONITOR
--- NOTE | 2018-11-01 06:10 | NUR ---
no acute changes, medication marginally effective on pain but pt declined to have dr called, call light in reach, moving slowly, saline locked, room air will continue to monitor and treat until sbar report given to day shift
--- NOTE | 2018-11-01 18:20 | NUR ---
SHIFT SUMMARY: NO ACUTE CHANGES TO REPORT THIS SHIFT. PT A&O; CALM AND COOPERATIVE WITH CARE. MEDICATED FOR PAIN PER EMAR. PT EVAL & TREAT THIS SHIFT; PT UP WITH SBA TO BSC/CHAIR. PT C/O THROAT PAIN; MAGIC MOUTHWASH ORDERED-PT STATES RELIEF. AWAITING PLACEMENT. WCTM.
--- NOTE | 2018-11-02 03:34 | NUR ---
NOC SHIFT SUMMARY PT PLEASANT AND COOPERATIVE WITH CARE. AAOX3. RESP EVEN AND UNLABORED. VSS. AWAITING PLACEMENT. NO ACUTE CHANGES NOTED THUS FAR THIS SHIFT. PT HAS SLEPT MUCH OF NIGHT. APPEARS TO BE SLEEPING CURRENTLY AND IN NO DISTRESS. WILL CONTINUE TO MONITOR.
--- NOTE | 2018-11-02 19:35 | NUR ---
SHIFT SUMMARY: NO ACUTE CHANGES TO REPORT THIS SHIFT. PT A&O; HX PARKINSONS-VERY STIFF AND PAINFUL. MEDICATED FOR PAIN PER EMAR. PATIENT UP TO CHAIR c 2-ASSIST. PT C/O CHRONIC NUMBNESS & TINGLING IN BILATERAL FEET. AWAITING PLACEMENT. REPORT GIVEN TO ONCOMING RN.
--- NOTE | 2018-11-03 05:06 | NUR ---
NOC SHIFT SUMMARY NO ACUTE CHANGES NOTED THIS NIGHT. PT IS PLEASANT AND COOPERATIVE WITH CARE. PTS ABX WERE CHANGED THIS NIGHT FROM MACROBID TO ROCEPHIN PER CX RESULTS. PT HAS SLEPT MUCH OF NIGHT. STILL AWAITING PLACEMENT. APPEARS IN NO ACUTE DISTRESS AT THIS TIME. WILL CONTINUE TO MONITOR.
--- NOTE | 2018-11-03 16:53 | NUR ---
shift summary pt up to recliner chair this morning with 1 person assist using fww. took a shower prior to lunch and was a 2 person with fww for safety. up til well after lunch and sat on commode with difficulty starting her stream but did void after a period of time. will report to oncoming shift.
--- NOTE | 2018-11-03 21:05 | NUR ---
PT TAKEN FOR HIP XRAY AT THIS TIME.
--- NOTE | 2018-11-04 05:50 | NUR ---
SUMMARY: A/OX4, SPECIFIES NEEDS AND COOPERATIVE W/CARE. SHE HAS PARKINSONIAN TREMOR SO IS SLOW MOVING AND REQ'S ASSIST OOB W/FWW AND GAIT BELT. PT WAS UP TO BSC THIS SHIFT TO ATTEMPT VOIDING BUT WAS UNSUCCESSFUL. SHE WAS OTHERWISE INCONTINENT SO URINE SPEC WASN'T OBTAINED. TYLENOL PRN RECIEVED FOR TOLERABLE CONTROL OF BACK PAIN AND PT WAS TAKEN FOR PELVIS XRAY THIS SHIFT. IV ABX RECIEVED FOR UTI THEN SL. PT AWAITING ASSISTED LIVING PLACEMENT BUT D/T IMPROVED MOBILITY, [facility] MAY NOW BE AN OPTION. NO ACUTE CHANGES, VSS/AFEBRILE. WCTM/REPORT TO DAY RN.
--- NOTE | 2018-11-04 09:22 | NUR ---
PT NOTED TO HAVE A BP OF 96/62, RECHECK OF 120/64. PT HAS ORDERS FOR LISINOPRIL 30MG PO DAILY AND NORVASC 10MG PO DAILY. PT REPORTS SHE DOES NOT TAKE NORVASC AT HOME, CALLED PHARMACY AND VERIFIED PT DOES NOT TAKE NORVASC AND ONLY TAKES LISINOPRIL 10MG PO DAILY AT HOME. SPOKE WITH DR Nigel JIMÉNEZ WHO REPORT DECREASE LISINOPRIL TO 10MG PO DAILY AND NORVASC TO 5MG PO DAILY, HOLD FOR SBP LESS THAN 100.
[2018-11-04 09:35] LABS: Source, Urine Clean Catch
[2018-11-04 09:50] LABS: Appearance, Urine Clear (Clear); Bilirubin, Urine Neg (Neg); Blood, Urine Neg (Neg); Color, Urine Yellow (P-Yellow); Glucose Qualitative, Urine Neg (Neg); Ketones, Urine Neg (Neg); Leukocyte Esterase, Urine Neg (Neg); Nitrite, Urine Neg (Neg); Protein, Urine Neg (Neg); Urobilinogen, Urine NORM (Normal)
--- NOTE | 2018-11-04 16:59 | NUR ---
SHIFT SUMMARY- PT A/O, BUT FORGETFUL AT TIMES. PT MEDICATED X1 WITH TRAMADOL FOR LOWER BACK PAIN. BP MEDS DECREASED THIS AM DUE TO SBP IN THE 90'S. 1 ASSIST OUT OF BED WITH FWW. PT WITH TREMORS R/T PARKINONS. LS CLEAR, ON RA. HRR. LG BM TODAY. INCONT OF URINE. BRUISING NOTED TO BUE. NO OTHER ACUTE CHANGES THIS SHIFT. PT AWAITING PLACEMENT.
--- NOTE | 2018-11-05 05:12 | NUR ---
Rn summary: Patient is alert and cooperative. Pt was up in chair at the beginning of shift. She was assisted to bed with gait belt and walker. Pt legs were very stiff and she had difficulty getting her legs to move. Pt is incontinent of urine and has been changed several times. Pt has denied pain. She has rested quietly with no distress or needs. Call light in reach.
--- NOTE | 2018-11-05 10:11 | NUR ---
PT UP TO BSC FOR BM C/O DIZZINESS AND "NOT FEELING WELL"; ASSISTED TO BED. VSS.
--- NOTE | 2018-11-05 10:48 | NUR ---
PT REPORTS "I'M FEELING BETTER NOW". DENIES NAUSEA OR DIZZINESS. DR. JIMÉNEZ JUST FINISHED TALKING AT BEDSIDE.
[2018-11-05] MEDS ORDERED: ACET325 PO (14:13)
[2018-11-05] MEDS ORDERED: DOCU100 PO (14:14)
[2018-11-05] MEDS ORDERED: GAVILAX17 GM PO (14:14)
[2018-11-05] MEDS ORDERED: AMLO5 PO (14:14)
--- NOTE | 2018-11-05 16:38 | NUR ---
Jenny was alone in room when I initally visited. she tells me she cannot return home and will be discharged to [facility] in [place]. she admits this is a hard transition for her and she repsonded well to emotional affirmation, developmental training counselor and encouragement. Her dtr arrived and seemed very stressed. "My diabeties is out of control." I got her some OJ and comforted her. Neither pt or family are involved in any arash community and do not have latter-day/spiritual beliefs. However, they did appear to appreciate being heard and cared-for. Mrs. Lambert is being discharged soon.
--- NOTE | 2018-11-05 16:42 | NUR ---
PT DISCHARGED VIA W/C TO [facility] POV WITH DAUGHTER. ALL BELONGINGS SENT WITH PATIENT AT TIME OF DISCHARGE. AVINASH RAMIREZ ARRANGED PT'S FOLLOW UP APPTS. AND KEPT [facility] UPDATED ON PT'S DISCHARGE TIME. IV DISCONTINUED INTACT. PT AWARE OF MEDICATIONS. FAXED ALL DISCHARGE INSTRUCTIONS AND MEDICATIONS DIRECTLY TO [facility] AND PROVIDED A HAND COPY TO PATIENT.
== END 2018-11-05 16:25 | disposition home or self-care (01) ==
LOC: ER 10:47 → MEDS 10:48 → ENPENDDIS 11-05 12:13 → MEDS 11-05 16:25
PROVIDERS: Emergency Medicine; Hospitalist; Internal Medicine; Student in an Organized Health Care Education/Training Program; ADMIT Internal Medicine Endocrinology, Diabetes & Metabolism
DX: S00.93XA Contusion of unspecified part of head, initial encounter (principal); S40.011A Contusion of right shoulder, initial encounter; S50.12XA Contusion of left forearm, initial encounter; G20 Parkinson's disease; R29.6 Repeated falls; M16.0 Bilateral primary osteoarthritis of hip; R53.1 Weakness; D72.829 Elevated white blood cell count, unspecified; E87.6 Hypokalemia; I12.9 Hypertensive chronic kidney disease with stage 1 through stage 4 chronic kidney disease, or unspecified chronic kidney disease; N18.3 Chronic kidney disease, stage 3 (moderate); G91.2 (Idiopathic) normal pressure hydrocephalus; Z45.41 Encounter for adjustment and management of cerebrospinal fluid drainage device; Z88.5 Allergy status to narcotic agent; W18.30XA Fall on same level, unspecified, initial encounter
CPT/HCPCS: 36415; 70450; 71045; 72170; 73600; 80048; 80053; 81001; 81003; 83735; 84100; 85025; 87077; 87086; 87186; 93005; 93010; 96361; 96365; 97110; 97162; 97165; 97530; 97535; 99285-25; J0696; J1650; J2543; J7030; P9612

== ENCOUNTER 2019-02-21 14:15 | Emergency (ER) | payer MEDICARE, OTHER ==
[~2019-02-21] VITALS: Ht 167.6 cm; Wt 74.4 kg
[~2019-02-21 14:15] MED LIST changes: +ACET325 PO; +GAVILAX17 GM PO
[2019-02-21] MEDS ORDERED: Norco 5-325 Ta1 EACH PO (17:23)
== END 2019-02-21 18:22 | disposition home or self-care (01) ==
LOC: ER 14:15
DX: S09.90XA Unspecified injury of head, initial encounter (principal); S59.001A Unspecified physeal fracture of lower end of ulna, right arm, initial encounter for closed fracture; I10 Essential (primary) hypertension; F32.9 Major depressive disorder, single episode, unspecified; E11.9 Type 2 diabetes mellitus without complications; G20 Parkinson's disease; E78.00 Pure hypercholesterolemia, unspecified; I25.2 Old myocardial infarction; Z86.73 Personal history of transient ischemic attack (TIA), and cerebral infarction without residual deficits; Z88.5 Allergy status to narcotic agent; Z79.899 Other long term (current) drug therapy; Z79.891 Long term (current) use of opiate analgesic; W01.10XA Fall on same level from slipping, tripping and stumbling with subsequent striking against unspecified object, initial encounter
CPT/HCPCS: 29105; 70450; 73090; 96372-59; 99284-25; A9270-GY; J3010